=== PATIENT | female | born 1965 | race African-American/Black ===

== ENCOUNTER 2017-05-26 18:29 | Emergency (ER) | payer SELFPAY ==
[~2017-05-26] VITALS: Ht 162.6 cm; Wt 89.6 kg
[~2017-05-26 18:29] MED LIST: HYDR25TA6 PO
[2017-05-26 18:30] VITALS: BP 174/109
[2017-05-26] MEDS ORDERED: IBUPROFEN 200 MG TABLET ONE (19:08)
[2017-05-26] MEDS ORDERED: IBUPROFEN 200 MG TABLET PO ONE (19:30)
== END 2017-05-26 19:08 | disposition home or self-care (01) ==
LOC: ED 19:02
DX: J01.20 Acute ethmoidal sinusitis, unspecified (principal); J01.10 Acute frontal sinusitis, unspecified; I10 Essential (primary) hypertension; G43.909 Migraine, unspecified, not intractable, without status migrainosus
CPT/HCPCS: 99283

== ENCOUNTER 2017-08-31 09:27 | Emergency (ER) | payer SELFPAY ==
[~2017-08-31] VITALS: Ht 165.1 cm; Wt 86.4 kg
[2017-08-31] MEDS ORDERED: MECLIZINE CHEWABLE 25 MG TAB PO ONE (11:00)
[2017-08-31] MEDS ORDERED: SODIUM CHLORIDE FLUSH 10ML SYR IVF ONE (11:00)
[2017-08-31] MEDS ORDERED: SODIUM CHLORIDE 0.9% 1,000ML IVBOLUS ONE (11:00)
[2017-08-31 11:37] LABS: BASOPHILS # (AUTO) 0.01 x10^3/uL (0-0.1); BASOPHILS % (AUTO) 0 % (0-1); EOSINOPHILS # (AUTO) 0.08 x10^3/uL (0-0.4); EOSINOPHILS % (AUTO) 2 % (1-7); LYMPHOCYTES # (AUTO) 1.59 x10^3/uL (1-3.4); LYMPHOCYTES % (AUTO) 30 % (22-44); MD NO; MEAN CORPUSCULAR HEMOGLOBIN 21.5 pg (27.0-34.8); MEAN CORPUSCULAR HGB CONC 31.5 g/dL (32.4-35.8); MEAN CORPUSCULAR VOLUME 68.4 fL (80-100); MEAN PLATELET VOLUME 8.2 fL (7.4-10.4); MONOCYTES # (AUTO) 0.44 x10^3/uL (0.2-0.8); MONOCYTES % (AUTO) 8 % (2-9); NEUTROPHILS # (AUTO) 3.12 x10^3/uL (1.8-6.8); NEUTROPHILS % (AUTO) 60 % (42-75); PLATELET COUNT 388 x10^3/uL (130-400); RED BLOOD COUNT 4.91 x10^6/uL (3.82-5.3); RED CELL DISTRIBUTION WIDTH 20.1 % (9.6-15.2)
[2017-08-31] MEDS ORDERED: MECLIZINE CHEWABLE 25 MG TAB ONE (11:37)
[2017-08-31 11:48] LABS: MICROSCOPIC NOT IND
[2017-08-31 11:53] LABS: CULTURE INDICATED? NO
[2017-08-31 11:57] LABS: ALANINE AMINOTRANSFERASE 20 U/L (12-78); ALBUMIN 3.1 g/dL (3.4-5.0); ANION GAP 6 mmol/L (5-15); CALCIUM 8.2 mg/dL (8.5-10.1); CHLORIDE 108 mmol/L (98-107)
[2017-08-31 12:02] LABS: ALKALINE PHOSPHATASE 115 U/L (45-117); BILIRUBIN,TOTAL 0.5 mg/dL (0.2-1.0); CREATININE 0.85 mg/dL (0.55-1.02); TOTAL PROTEIN 7.1 g/dL (6.4-8.2); TROPONIN I < 0.015 ng/mL (0.000-0.045)
[2017-08-31 12:43] VITALS: BP 151/94
== END 2017-08-31 13:27 | disposition home or self-care (01) ==
LOC: ED 12:24
DX: R42 Dizziness and giddiness (principal); I10 Essential (primary) hypertension; G43.009 Migraine without aura, not intractable, without status migrainosus
CPT/HCPCS: 36415; 71046; 80053; 81003; 83880; 84484; 85025; 93005; 96360; 96361; 99285; J7030

== ENCOUNTER 2017-09-03 15:59 | Emergency (ER) | payer OTHER ==
[~2017-09-03] VITALS: Ht 162.6 cm; Wt 86.7 kg
[2017-09-03 17:02] LABS: ALBUMIN 3.5 g/dL (3.4-5.0); ANION GAP 8 mmol/L (5-15); CALCIUM 8.7 mg/dL (8.5-10.1); CHLORIDE 101 mmol/L (98-107); CREATININE 0.88 mg/dL (0.55-1.02)
[2017-09-03 17:06] LABS: TROPONIN I < 0.015 ng/mL (0.000-0.045)
[2017-09-03 17:07] LABS: MEAN CORPUSCULAR HEMOGLOBIN 21.6 pg (27.0-34.8); MEAN CORPUSCULAR HGB CONC 31.1 g/dL (32.4-35.8); MEAN CORPUSCULAR VOLUME 69.6 fL (80-100); MEAN PLATELET VOLUME 8.3 fL (7.4-10.4); PLATELET COUNT 458 x10^3/uL (130-400); RED BLOOD COUNT 5.22 x10^6/uL (3.82-5.3); RED CELL DISTRIBUTION WIDTH 20.5 % (9.6-15.2)
[2017-09-03 17:32] LABS: MD MORPH REVIEW ONLY
[2017-09-03 17:33] LABS: ANISOCYTOSIS 1+; HYPOCHROMIA 1+; MICROCYTOSIS 1+; POLYCHROMASIA 1+
[2017-09-03 17:34] LABS: <PLATELET ESTIMATE> INCREASED
[2017-09-03 17:35] LABS: LARGE PLATELETS 1+
[2017-09-03 17:38] LABS: BASOPHILS # (AUTO) 0.06 x10^3/uL (0-0.1); BASOPHILS % (AUTO) 1 % (0-1); EOSINOPHILS % (AUTO) 1 % (1-7); LYMPHOCYTES # (AUTO) 3.47 x10^3/uL (1-3.4); LYMPHOCYTES % (AUTO) 41 % (22-44); MONOCYTES # (AUTO) 0.46 x10^3/uL (0.2-0.8); MONOCYTES % (AUTO) 6 % (2-9); NEUTROPHILS # (AUTO) 4.28 x10^3/uL (1.8-6.8); NEUTROPHILS % (AUTO) 51 % (42-75)
[2017-09-03] MEDS ORDERED: POTASSIUM CHLORIDE 20 MEQ TAB.ER.PRT PO ONE (19:30)
[2017-09-03] MEDS ORDERED: POTASSIUM CHLORIDE 20 MEQ TAB.ER.PRT ONE (19:31)
[2017-09-03 21:24] VITALS: BP 141/88
== END 2017-09-03 21:35 | disposition home or self-care (01) ==
LOC: ED 19:49
DX: I10 Essential (primary) hypertension (principal); E87.6 Hypokalemia; G43.909 Migraine, unspecified, not intractable, without status migrainosus
CPT/HCPCS: 36415; 71045; 80048; 82040; 83880; 84484; 85025; 93005; 99285

== ENCOUNTER 2017-12-12 21:34 | Emergency (ER) | payer SELFPAY ==
[~2017-12-12] VITALS: Ht 162.6 cm; Wt 85.2 kg
[2017-12-12] MEDS ORDERED: HCTZ (21:39)
[2017-12-12] MEDS ORDERED: ENALAPRIL (21:39)
[2017-12-12 22:38] LABS: ALBUMIN 3.3 g/dL (3.4-5.0); ANION GAP 9 mmol/L (5-15); BASOPHILS # (AUTO) 0.04 x10^3/uL (0-0.1); BASOPHILS % (AUTO) 1 % (0-1); CALCIUM 8.8 mg/dL (8.5-10.1); CHLORIDE 107 mmol/L (98-107); CREATININE 1.15 mg/dL (0.55-1.02); EOSINOPHILS # (AUTO) 0.08 x10^3/uL (0-0.4); EOSINOPHILS % (AUTO) 1 % (1-7); LYMPHOCYTES # (AUTO) 2.18 x10^3/uL (1-3.4); LYMPHOCYTES % (AUTO) 33 % (22-44); MD NO; MEAN CORPUSCULAR HEMOGLOBIN 26.5 pg (27.0-34.8); MEAN CORPUSCULAR HGB CONC 32.6 g/dL (32.4-35.8); MEAN CORPUSCULAR VOLUME 81.4 fL (80-100); MEAN PLATELET VOLUME 8.6 fL (7.4-10.4); MONOCYTES # (AUTO) 0.53 x10^3/uL (0.2-0.8); MONOCYTES % (AUTO) 8 % (2-9); NEUTROPHILS # (AUTO) 3.76 x10^3/uL (1.8-6.8); NEUTROPHILS % (AUTO) 57 % (42-75); PLATELET COUNT 271 x10^3/uL (130-400); RED BLOOD COUNT 4.93 x10^6/uL (3.82-5.3); RED CELL DISTRIBUTION WIDTH 17.6 % (9.6-15.2)
[2017-12-12 23:29] VITALS: BP 126/71
== END 2017-12-12 23:31 | disposition home or self-care (01) ==
LOC: ED 22:11
DX: R20.2 Paresthesia of skin (principal); I10 Essential (primary) hypertension
CPT/HCPCS: 36415; 80048; 82040; 83735; 85025; 99284

== ENCOUNTER 2017-12-15 14:07 | Emergency (ER) | payer SELFPAY ==
[~2017-12-15] VITALS: Ht 162.6 cm; Wt 84.6 kg
[~2017-12-15 14:07] MED LIST changes: +ENALAPRIL; +HCTZ
[2017-12-15 14:10] VITALS: BP 152/111
[2017-12-15] MEDS ORDERED: POTA25TA4 PO (15:29)
[2017-12-15] MEDS ORDERED: ENAL2.5T PO (15:29)
== END 2017-12-15 17:14 | disposition home or self-care (01) ==
LOC: ED 16:50
DX: S00.12XA Contusion of left eyelid and periocular area, initial encounter (principal); G43.909 Migraine, unspecified, not intractable, without status migrainosus; I10 Essential (primary) hypertension; W22.8XXA Striking against or struck by other objects, initial encounter; Y93.89 Activity, other specified; Y92.89 Other specified places as the place of occurrence of the external cause; Y99.8 Other external cause status
CPT/HCPCS: 70486; 99284

== ENCOUNTER 2017-12-18 22:02 | Emergency (ER) | payer SELFPAY ==
[~2017-12-18] VITALS: Ht 162.6 cm; Wt 86.8 kg
[~2017-12-18 22:02] MED LIST changes: +ENAL2.5T PO; +POTA25TA4 PO
[2017-12-18 22:54] LABS: ALBUMIN 3.2 g/dL (3.4-5.0); ANION GAP 11 mmol/L (5-15); CHLORIDE 106 mmol/L (98-107); CREATININE 0.87 mg/dL (0.55-1.02)
[2017-12-18 22:57] LABS: TROPONIN I < 0.015 ng/mL (0.000-0.045)
[2017-12-18 23:04] LABS: MEAN CORPUSCULAR HEMOGLOBIN 27.3 pg (27.0-34.8); MEAN CORPUSCULAR VOLUME 82.7 fL (80-100); MEAN PLATELET VOLUME 8.5 fL (7.4-10.4); PLATELET COUNT 264 x10^3/uL (130-400); RED BLOOD COUNT 4.82 x10^6/uL (3.82-5.3); RED CELL DISTRIBUTION WIDTH 16.9 % (9.6-15.2)
[2017-12-18 23:21] LABS: BASOPHILS # (AUTO) 0.03 x10^3/uL (0-0.1); BASOPHILS % (AUTO) 0 % (0-1); EOSINOPHILS # (AUTO) 0.11 x10^3/uL (0-0.4); EOSINOPHILS % (AUTO) 2 % (1-7); LYMPHOCYTES # (AUTO) 2.11 x10^3/uL (1-3.4); LYMPHOCYTES % (AUTO) 34 % (22-44); MD SCAN; MONOCYTES # (AUTO) 0.45 x10^3/uL (0.2-0.8); MONOCYTES % (AUTO) 7 % (2-9); NEUTROPHILS # (AUTO) 3.47 x10^3/uL (1.8-6.8); NEUTROPHILS % (AUTO) 56 % (42-75)
[2017-12-19] MEDS ORDERED: POTASSIUM CHLORIDE 20 MEQ TAB.ER.PRT PO ONE
[2017-12-19] MEDS ORDERED: POTASSIUM CHLORIDE 20 MEQ TAB.ER.PRT ONE (00:10)
[2017-12-19 00:24] VITALS: BP 119/71
== END 2017-12-19 00:27 | disposition home or self-care (01) ==
LOC: ED 23:22
DX: R55 Syncope and collapse (principal); R53.1 Weakness; I10 Essential (primary) hypertension
CPT/HCPCS: 36415; 80048; 82040; 84484; 85025; 93005; 99285

== ENCOUNTER 2018-01-19 14:22 | Emergency (ER) | payer SELFPAY ==
[~2018-01-19] VITALS: Ht 162.6 cm; Wt 86.0 kg
[2018-01-19] MEDS ORDERED: KETOROLAC 30 MG/1 ML IM ONE (14:30)
[2018-01-19] MEDS ORDERED: KETOROLAC 30 MG/1 ML ONE (14:45)
[2018-01-19 14:56] LABS: BASOPHILS # (AUTO) 0.04 x10^3/uL (0-0.1); BASOPHILS % (AUTO) 1 % (0-1); EOSINOPHILS # (AUTO) 0.09 x10^3/uL (0-0.4); EOSINOPHILS % (AUTO) 2 % (1-7); LYMPHOCYTES # (AUTO) 2.45 x10^3/uL (1-3.4); LYMPHOCYTES % (AUTO) 39 % (22-44); MD NO; MEAN CORPUSCULAR HEMOGLOBIN 28.9 pg (27.0-34.8); MEAN CORPUSCULAR HGB CONC 33.4 g/dL (32.4-35.8); MEAN CORPUSCULAR VOLUME 86.6 fL (80-100); MEAN PLATELET VOLUME 8.3 fL (7.4-10.4); MONOCYTES # (AUTO) 0.47 x10^3/uL (0.2-0.8); MONOCYTES % (AUTO) 8 % (2-9); NEUTROPHILS # (AUTO) 3.21 x10^3/uL (1.8-6.8); NEUTROPHILS % (AUTO) 51 % (42-75); PLATELET COUNT 295 x10^3/uL (130-400); RED BLOOD COUNT 5.13 x10^6/uL (3.82-5.3); RED CELL DISTRIBUTION WIDTH 16.6 % (9.6-15.2)
[2018-01-19] MEDS ORDERED: OMEP40CA6 PO (15:04)
[2018-01-19 15:09] LABS: ALANINE AMINOTRANSFERASE 27 U/L (12-78); ALBUMIN 3.4 g/dL (3.4-5.0); ANION GAP 10 mmol/L (5-15); CALCIUM 9.1 mg/dL (8.5-10.1); CHLORIDE 105 mmol/L (98-107)
[2018-01-19 15:14] LABS: ALKALINE PHOSPHATASE 109 U/L (45-117); BILIRUBIN,TOTAL 0.5 mg/dL (0.2-1.0); TOTAL PROTEIN 7.8 g/dL (6.4-8.2); TROPONIN I < 0.015 ng/mL (0.000-0.045)
[2018-01-19] MEDS ORDERED: SODIUM CHLORIDE FLUSH 10ML SYR IVF ONE (15:30)
[2018-01-19] MEDS ORDERED: OMNIPAQUE 350 MG/ML, 100ML BOTTLE ONE (16:06)
[2018-01-19 16:22] VITALS: BP 123/76
== END 2018-01-19 17:03 | disposition home or self-care (01) ==
LOC: ED 15:03
DX: R06.00 Dyspnea, unspecified (principal); R07.89 Other chest pain; R09.1 Pleurisy; I10 Essential (primary) hypertension
CPT/HCPCS: 36415; 71046; 71275; 80053; 83880; 84484; 85025; 85379; 93005; 96372; 99285; J1885; Q9967

== ENCOUNTER 2018-03-04 08:21 | Emergency (ER) | payer OTHER ==
[~2018-03-04] VITALS: Ht 162.6 cm; Wt 85.9 kg
[~2018-03-04 08:21] MED LIST changes: +OMEP40CA6 PO
[2018-03-04] MEDS ORDERED: LORazepam 1MG TABLET PO ONE (09:00)
[2018-03-04] MEDS ORDERED: ONDANSETRON ODT 4 MG PO ONE (09:00)
[2018-03-04] MEDS ORDERED: LORazepam 1MG TABLET ONE (09:03)
[2018-03-04] MEDS ORDERED: ONDANSETRON ODT 4 MG ONE (09:03)
[2018-03-04 09:23] LABS: ALANINE AMINOTRANSFERASE 26 U/L (12-78); ALBUMIN 3.6 g/dL (3.4-5.0); ANION GAP 6 mmol/L (5-15); CALCIUM 8.2 mg/dL (8.5-10.1); CHLORIDE 109 mmol/L (98-107); CREATININE 0.88 mg/dL (0.55-1.02)
[2018-03-04 09:28] LABS: ALKALINE PHOSPHATASE 104 U/L (45-117); BILIRUBIN,TOTAL 0.7 mg/dL (0.2-1.0); TOTAL PROTEIN 7.9 g/dL (6.4-8.2); TROPONIN I < 0.015 ng/mL (0.000-0.045)
[2018-03-04 09:41] LABS: BASOPHILS # (AUTO) 0.03 x10^3/uL (0-0.1); BASOPHILS % (AUTO) 1 % (0-1); EOSINOPHILS # (AUTO) 0.05 x10^3/uL (0-0.4); EOSINOPHILS % (AUTO) 1 % (1-7); LYMPHOCYTES # (AUTO) 1.64 x10^3/uL (1-3.4); LYMPHOCYTES % (AUTO) 30 % (22-44); MD NO; MEAN CORPUSCULAR HEMOGLOBIN 29.9 pg (27.0-34.8); MEAN CORPUSCULAR HGB CONC 33.7 g/dL (32.4-35.8); MEAN CORPUSCULAR VOLUME 88.8 fL (80-100); MEAN PLATELET VOLUME 8.5 fL (7.4-10.4); MONOCYTES % (AUTO) 7 % (2-9); NEUTROPHILS % (AUTO) 61 % (42-75); PLATELET COUNT 293 x10^3/uL (130-400); RED BLOOD COUNT 5.03 x10^6/uL (3.82-5.3); RED CELL DISTRIBUTION WIDTH 14.4 % (9.6-15.2)
[2018-03-04 09:55] VITALS: BP 129/82
== END 2018-03-04 10:17 | disposition home or self-care (01) ==
LOC: ED 09:34
DX: F43.0 Acute stress reaction (principal); F41.9 Anxiety disorder, unspecified; K21.9 Gastro-esophageal reflux disease without esophagitis; G43.909 Migraine, unspecified, not intractable, without status migrainosus; I10 Essential (primary) hypertension; Z79.899 Other long term (current) drug therapy
CPT/HCPCS: 36415; 80053; 84484; 85025; 93005; 99284; Q0162

== ENCOUNTER 2018-06-08 06:52 | Day surgery (SDC) | payer OTHER ==
[~2018-06-08] VITALS: Ht 162.6 cm; Wt 88.0 kg
[2018-06-08] MEDS ORDERED: AMLO10TA8 PO (07:15)
[2018-06-08] MEDS ORDERED: ONDANSETRON 2MG/ML, 2ML ONE ×2 (07:17→12:18)
[2018-06-08] MEDS ORDERED: FAMOTIDINE 20 MG/2 ML ONE (07:18)
[2018-06-08] MEDS ORDERED: MORPHINE SULFATE 4 MG/ML, 1ML ONE ×2 (07:18→08:54)
[2018-06-08] MEDS: MORPHINE SULFATE 4 MG/ML, 1ML IVPush PRN ×2 (07:27→08:55)
[2018-06-08 07:30] LABS: BASOPHILS # (AUTO) 0.03 x10^3/uL (0-0.1); BASOPHILS % (AUTO) 0 % (0-1); EOSINOPHILS % (AUTO) 2 % (1-7); LYMPHOCYTES # (AUTO) 1.47 x10^3/uL (1-3.4); LYMPHOCYTES % (AUTO) 24 % (22-44); MD NO; MEAN CORPUSCULAR HEMOGLOBIN 29.2 pg (27.0-34.8); MEAN CORPUSCULAR HGB CONC 33.2 g/dL (32.4-35.8); MEAN CORPUSCULAR VOLUME 87.9 fL (80-100); MEAN PLATELET VOLUME 8.1 fL (7.4-10.4); MONOCYTES # (AUTO) 0.44 x10^3/uL (0.2-0.8); MONOCYTES % (AUTO) 7 % (2-9); NEUTROPHILS # (AUTO) 4.23 x10^3/uL (1.8-6.8); NEUTROPHILS % (AUTO) 67 % (42-75); PLATELET COUNT 267 x10^3/uL (130-400); RED CELL DISTRIBUTION WIDTH 13.4 % (9.6-15.2)
[2018-06-08] MEDS ORDERED: FAMOTIDINE 20 MG/2 ML IVP ONE (07:30)
[2018-06-08] MEDS ORDERED: SODIUM CHLORIDE FLUSH 10ML SYR IVF ONE (07:30)
[2018-06-08] MEDS ORDERED: ONDANSETRON 2MG/ML, 2ML IVPush ONE (07:30)
[2018-06-08 07:43] LABS: ALANINE AMINOTRANSFERASE 24 U/L (12-78); ALBUMIN 3.5 g/dL (3.4-5.0); ANION GAP 8 mmol/L (5-15); CALCIUM 8.7 mg/dL (8.5-10.1); CHLORIDE 112 mmol/L (98-107); CREATININE 0.79 mg/dL (0.55-1.02)
[2018-06-08 07:58] LABS: ALKALINE PHOSPHATASE 99 U/L (45-117); BILIRUBIN,TOTAL 0.5 mg/dL (0.2-1.0); TOTAL PROTEIN 7.1 g/dL (6.4-8.2)
[2018-06-08] MEDS ORDERED: OMNIPAQUE 350 MG/ML, 100ML BOTTLE ONE (08:20)
--- NOTE | 2018-06-08 08:56 | NUR ---
PT PAIN HAD IMPROVED TO 4/10 BUT IS NOW BACK UP TO A 8/10. PT MED NOTED. VSS
--- NOTE | 2018-06-08 09:10 | NUR ---
PT OOB AMBULATED TO BATHROOM UPRIGHT STEADY GAIT.
--- NOTE | 2018-06-08 10:31 | NUR ---
[facility] RPT TO PRE-OP RN. PTS NEEDS TO BE CALLED POST-OP RANDOLPH DIANE [phone]
[2018-06-08] MEDS ORDERED: ASPIRIN PO (11:07)
[2018-06-08] MEDS ORDERED: BUPIVACAINE/PF-EPI 0.5% 1:200K ONE (11:10)
[2018-06-08 11:11] VITALS: BP 155/107
[2018-06-08] MEDS ORDERED: FENTANYL PF 250 MCG/5ML ONE (11:24)
[2018-06-08] MEDS ORDERED: MIDAZOLAM 1 MG/ML, 2ML ONE (11:24)
[2018-06-08] MEDS ORDERED: DEXAMETHASONE 4 MG/ML, 1ML ONE (11:52)
[2018-06-08] MEDS ORDERED: ROCURONIUM 10MG/ML,5ML ONE (11:52)
[2018-06-08] MEDS ORDERED: PROPOFOL 10 MG/ML, 20ML ONE (11:52)
[2018-06-08] MEDS ORDERED: SUCCINYLCHOLINE 20 MG/ML, 10ML ONE (11:52)
[2018-06-08] MEDS ORDERED: ONDANSETRON 2MG/ML, 2ML IV PRN (12:30)
[2018-06-08] MEDS ORDERED: ALBUTEROL SULFATE 2.5 MG/3 ML NPPB PRN (12:30)
[2018-06-08] MEDS ORDERED: MEPERIDINE/PF 25MG/0.5ML IVPush PRN (12:30)
[2018-06-08] MEDS ORDERED: PROMETHAZINE 12.5 MG SUPP PR PRN (12:30)
[2018-06-08] MEDS ORDERED: hydrALAzine 20 MG/ML, 1ML IV PRN (12:30)
[2018-06-08] MEDS ORDERED: OXYcodone 5 MG/5 ML ORAL.SOL UDC PO PRN (12:30)
[2018-06-08] MEDS ORDERED: EPHEDRINE 50 MG/ML, 1ML IVPush PRN (12:30)
[2018-06-08] MEDS ORDERED: MORPHINE SULFATE 4 MG/ML, 1ML IVPush PRN (12:30)
[2018-06-08] MEDS ORDERED: HYDROmorphone 2 MG/ML, 1ML IVPush PRN (12:30)
[2018-06-08] MEDS ORDERED: DIAZEPAM 5 MG/ML, 2ML IVPush PRN (12:30)
[2018-06-08] MEDS ORDERED: LABETALOL 5MG/ML, 20ML IV PRN (12:30)
[2018-06-08] MEDS ORDERED: MIDAZOLAM 1 MG/ML, 2ML IV PRN (12:30)
[2018-06-08] MEDS ORDERED: ONDANSETRON ODT 8 MG PO PRN (12:30)
[2018-06-08] MEDS ORDERED: ACETAMINOPHEN 325 MG TABLET PO PRN (12:30)
[2018-06-08] MEDS ORDERED: HALOPERIDOL 5 MG/ML IV PRN (12:30)
[2018-06-08] MEDS ORDERED: FENTANYL PF 100 MCG/2ML IV PRN (12:30)
[2018-06-08] MEDS ORDERED: PROMETHAZINE 25 MG/ML, 1ML IV PRN (12:30)
[2018-06-08] MEDS ORDERED: FENTANYL PF 100 MCG/2ML ONE (12:55)
[2018-06-08] MEDS ORDERED: OXYcodone 5 MG/5 ML ORAL.SOL UDC ONE (12:55)
[2018-06-08] MEDS ORDERED: PHENYLEPHRINE 10 MG/ML ONE (16:14)
== END 2018-06-08 15:32 | disposition home or self-care (01) ==
LOC: ED 09:17 → ORIP 10:14 → UNDOADMOB 10:14 → OR 12:30
PROVIDERS: ATTEND Emergency Medicine
DX: M79.89 Other specified soft tissue disorders (principal); I10 Essential (primary) hypertension; K21.9 Gastro-esophageal reflux disease without esophagitis; E87.6 Hypokalemia; Z88.8 Allergy status to other drugs, medicaments and biological substances; Z98.890 Other specified postprocedural states
CPT/HCPCS: 22900; 36415; 74177; 80053; 81025; 83690; 84703; 85025; 87070; 87075; 87077; 87205; 88305; 93005; J0330; J1100; J2250; J2370; J2405; J2704; J3010; J3490; Q9967

== ENCOUNTER 2018-10-14 21:41 | Emergency (ER) | payer OTHER ==
[~2018-10-14] VITALS: Ht 162.6 cm; Wt 87.4 kg
[2018-10-15 00:04] VITALS: BP 141/73
== END 2018-10-15 00:06 | disposition home or self-care (01) ==
LOC: ED 23:59
DX: K21.9 Gastro-esophageal reflux disease without esophagitis (principal); K29.00 Acute gastritis without bleeding
CPT/HCPCS: 36415; 71045; 80053; 83690; 84484; 85025; 93005; 96374; 96375; 99284; J2405; J3490

== ENCOUNTER 2019-04-13 19:36 | Emergency (ER) | payer OTHER ==
[~2019-04-13] VITALS: Ht 162.6 cm; Wt 88.6 kg
[~2019-04-13 19:36] MED LIST changes: +AMLO10TA8 PO; +ASPIRIN PO; +METO25TA35 PO; +OMEP40CA42 PO; -OMEP40CA6 PO
--- NOTE | 2019-04-13 20:00 | NUR ---
THIS IS A 53 YO F W/ C/O URINARY FREQ SINCE FRIDAY AND INTERMITTENT LLQ PAIN SINCE FRIDAY. DENIES N/V/D. DENIES PAIN W/ URINATION. REPORTS NEG UA FROM [facility]. RESP EVEN AND UNLABORED. VS STABLE. CALL LIGHT IN REACH. DENIES FURTHER NEEDS AT THIS TIME. AWAITING ORDERS.
--- NOTE | 2019-04-13 20:09 | NUR ---
UA COLLECTED AND SENT TO LAB
[2019-04-13 20:23] LABS: MICROSCOPIC NOT IND
[2019-04-13 20:29] LABS: ALBUMIN 3.3 g/dL (3.4-5.0); ANION GAP 7 mmol/L (5-15); CALCIUM 8.6 mg/dL (8.5-10.1); CHLORIDE 110 mmol/L (98-107); CREATININE 0.73 mg/dL (0.55-1.02)
[2019-04-13 20:30] LABS: CULTURE INDICATED? NO
[2019-04-13 20:37] LABS: BASOPHILS # (AUTO) 0.03 x10^3/uL (0-0.1); BASOPHILS % (AUTO) 1 % (0-1); EOSINOPHILS # (AUTO) 0.17 x10^3/uL (0-0.4); EOSINOPHILS % (AUTO) 3 % (1-7); LYMPHOCYTES # (AUTO) 2.14 x10^3/uL (1-3.4); LYMPHOCYTES % (AUTO) 32 % (22-44); MD NO; MEAN CORPUSCULAR HEMOGLOBIN 29.2 pg (27.0-34.8); MEAN CORPUSCULAR HGB CONC 33.4 g/dL (32.4-35.8); MEAN CORPUSCULAR VOLUME 87.4 fL (80-100); MEAN PLATELET VOLUME 8.6 fL (7.4-10.4); MONOCYTES # (AUTO) 0.41 x10^3/uL (0.2-0.8); MONOCYTES % (AUTO) 6 % (2-9); NEUTROPHILS # (AUTO) 3.98 x10^3/uL (1.8-6.8); NEUTROPHILS % (AUTO) 59 % (42-75); PLATELET COUNT 278 x10^3/uL (130-400); RED BLOOD COUNT 4.55 x10^6/uL (3.82-5.3); RED CELL DISTRIBUTION WIDTH 13.5 % (9.6-15.2)
--- NOTE | 2019-04-13 20:44 | NUR ---
ALL TESTS RESULTED. PT IS UP FOR RECHECK AT THIS TIME.
[2019-04-13 20:46] VITALS: BP 128/88
--- NOTE | 2019-04-13 21:34 | NUR ---
PT TO RAD.
--- NOTE | 2019-04-13 22:21 | NUR ---
Patient given discharge instructions and they have confirmed that they understand the instructions. Patient ambulatory with steady gait.
== END 2019-04-13 22:23 | disposition home or self-care (01) ==
LOC: ED 22:00
DX: D25.9 Leiomyoma of uterus, unspecified (principal); R10.32 Left lower quadrant pain; I10 Essential (primary) hypertension; G43.909 Migraine, unspecified, not intractable, without status migrainosus
CPT/HCPCS: 36415; 74176; 76856; 80048; 81003; 82040; 85025; 99284

== ENCOUNTER 2019-07-14 22:32 | Emergency (ER) | payer OTHER ==
[~2019-07-14] VITALS: Ht 154.9 cm; Wt 84.3 kg
[2019-07-14 23:16] LABS: MEAN CORPUSCULAR HEMOGLOBIN 28.6 pg (27.0-34.8); MEAN CORPUSCULAR HGB CONC 32.8 g/dL (32.4-35.8); MEAN CORPUSCULAR VOLUME 87.2 fL (80-100); MEAN PLATELET VOLUME 8.2 fL (7.4-10.4); PLATELET COUNT 259 x10^3/uL (130-400); RED BLOOD COUNT 4.64 x10^6/uL (3.82-5.3); RED CELL DISTRIBUTION WIDTH 14.4 % (9.6-15.2)
[2019-07-14 23:18] LABS: ALBUMIN 3.2 g/dL (3.4-5.0); ANION GAP 7 mmol/L (5-15); CALCIUM 9.1 mg/dL (8.5-10.1); CHLORIDE 109 mmol/L (98-107); CREATININE 0.77 mg/dL (0.55-1.02)
[2019-07-14 23:22] LABS: TROPONIN I < 0.015 ng/mL (0.000-0.045)
[2019-07-14 23:29] VITALS: BP 149/98
[2019-07-14 23:42] LABS: MD YES
[2019-07-14 23:51] LABS: EOS#(MANUAL) 0.13 x10^3/uL (0.0-0.4); EOS% (MANUAL) 2 % (1-7); LYMPHS% (MANUAL) 43 % (22-44); MONOS% (MANUAL) 3 % (2-9); SEG#(MANUAL) 3.38 x10^3/uL (1.8-6.8); SEGS% (MANUAL) 52 % (42-75)
[2019-07-14 23:52] LABS: <PLATELET ESTIMATE> ADEQUATE; <PLT MORPHOLOGY> NORMAL PLT MORPH; <RBC MORPHOLOGY> NORMAL
== END 2019-07-15 00:47 | disposition home or self-care (01) ==
LOC: ED 23:42
DX: M25.512 Pain in left shoulder (principal); I11.9 Hypertensive heart disease without heart failure
CPT/HCPCS: 36415; 71045; 80048; 82040; 84484; 85025; 93005; 99285

== ENCOUNTER 2019-09-26 12:10 | Emergency (ER) | payer OTHER ==
[~2019-09-26] VITALS: Ht 162.6 cm; Wt 85.5 kg
[2019-09-26 12:16] VITALS: BP 142/93
--- NOTE | 2019-09-26 12:33 | NUR ---
MD IS AT THE BEDSIDE FOR ASSESSMENT
== END 2019-09-26 13:21 ==
LOC: ED 13:15
DX: M54.32 Sciatica, left side (principal); R20.8 Other disturbances of skin sensation; I10 Essential (primary) hypertension; K21.9 Gastro-esophageal reflux disease without esophagitis
CPT/HCPCS: 99282

== ENCOUNTER 2020-02-29 23:12 | Emergency (ER) | payer SELFPAY ==
[~2020-02-29] VITALS: Ht 162.6 cm; Wt 90.0 kg
[~2020-02-29 23:12] MED LIST changes: +AMLO-211 PO; -AMLO10TA8 PO; -ENAL2.5T PO; +ENAL2.5T8 PO
--- NOTE | 2020-02-29 23:29 | NUR ---
TASK RN: PT AMBULATES BACK TO ROOM WITH SPOUSE. PT BIB SPOUSE VIA POV DUE TO LEFT ARM PAIN. PT DENIES ANY CP, SOB, OR TRAUMA TO ARM. TYLER RUDD AT BEDSIDE. PT RESTING IN [facility], MONITORING IN PLACE, AT BS, [place] AT THIS TIME.
[2020-02-29] MEDS ORDERED: HYDROcodone/APAP 5/325 TABLET ONE (23:39)
[2020-03-01] MEDS ORDERED: HYDROcodone/APAP 5/325 TABLET PO ONE
[2020-03-01 00:04] LABS: BASOPHILS % (AUTO) 1 % (0-1); EOSINOPHILS % (AUTO) 4 % (1-7); LYMPHOCYTES % (AUTO) 37 % (22-44); MEAN CORPUSCULAR HEMOGLOBIN 28.9 pg (27.0-34.8); MEAN CORPUSCULAR HGB CONC 33.6 g/dL (32.4-35.8); MEAN PLATELET VOLUME 8.1 fL (7.4-10.4); MONOCYTES % (AUTO) 8 % (2-9); NEUTROPHILS % (AUTO) 51 % (42-75); PLATELET COUNT 273 x10^3/uL (130-400); RED BLOOD COUNT 4.72 x10^6/uL (3.82-5.3); RED CELL DISTRIBUTION WIDTH 14.1 % (9.6-15.2)
[2020-03-01 00:06] LABS: MD NO
[2020-03-01 00:12] LABS: ALANINE AMINOTRANSFERASE 39 U/L (12-78); ALBUMIN 3.4 g/dL (3.4-5.0); ANION GAP 4 mmol/L (5-15); CALCIUM 8.7 mg/dL (8.5-10.1); CHLORIDE 111 mmol/L (98-107); CREATININE 0.81 mg/dL (0.55-1.02)
[2020-03-01 00:16] LABS: ALKALINE PHOSPHATASE 153 U/L (45-117); BILIRUBIN,TOTAL 0.2 mg/dL (0.2-1.0); TOTAL PROTEIN 7.6 g/dL (6.4-8.2); TROPONIN I < 0.015 ng/mL (0.000-0.045)
[2020-03-01] MEDS ORDERED: KETOROLAC 30 MG/1 ML IM ONE (01:30)
[2020-03-01] MEDS ORDERED: KETOROLAC 30 MG/1 ML ONE (01:45)
[2020-03-01 01:51] VITALS: BP 133/78
--- NOTE | 2020-03-01 01:53 | NUR ---
Patient/Caregiver given discharge instructions and they have confirmed that they understand the instructions. Patient ambulatory with steady gait.
== END 2020-03-01 01:54 | disposition home or self-care (01) ==
LOC: ED 03-01 00:43
DX: S46.012A Strain of muscle(s) and tendon(s) of the rotator cuff of left shoulder, initial encounter (principal); I10 Essential (primary) hypertension; K21.9 Gastro-esophageal reflux disease without esophagitis; G43.909 Migraine, unspecified, not intractable, without status migrainosus; X58.XXXA Exposure to other specified factors, initial encounter; Y93.89 Activity, other specified; Y92.89 Other specified places as the place of occurrence of the external cause; Y99.8 Other external cause status
CPT/HCPCS: 36415; 71045; 73030; 80053; 84484; 85025; 93005; 93971; 96372; 99285; J1885

== ENCOUNTER 2020-12-02 23:38 | Emergency (ER) | payer SELFPAY ==
[~2020-12-02] VITALS: Ht 162.6 cm; Wt 90.5 kg
[~2020-12-02 23:38] MED LIST changes: -OMEP40CA42 PO; +OMEP40CA8 PO
[2020-12-03] MEDS ORDERED: SODIUM CHLORIDE FLUSH 10ML SYR IVF ONE
[2020-12-03 00:06] LABS: MICROSCOPIC NOT IND
[2020-12-03 00:10] LABS: BASOPHILS % (AUTO) 1 % (0-1); EOSINOPHILS % (AUTO) 2 % (1-7); LYMPHOCYTES % (AUTO) 35 % (22-44); MEAN CORPUSCULAR HEMOGLOBIN 29.3 pg (27.0-34.8); MEAN CORPUSCULAR HGB CONC 34.1 g/dL (32.4-35.8); MEAN PLATELET VOLUME 8.3 fL (7.4-10.4); MONOCYTES % (AUTO) 8 % (2-9); NEUTROPHILS % (AUTO) 55 % (42-75); PLATELET COUNT 250 x10^3/uL (130-400); RED BLOOD COUNT 4.76 x10^6/uL (3.82-5.3); RED CELL DISTRIBUTION WIDTH 13.9 % (9.6-15.2)
[2020-12-03 00:21] LABS: ALANINE AMINOTRANSFERASE 30 U/L (12-78); ALBUMIN 2.9 g/dL (3.4-5.0); ANION GAP 4 mmol/L (5-15); CALCIUM 8.7 mg/dL (8.5-10.1); CHLORIDE 110 mmol/L (98-107)
[2020-12-03 00:26] LABS: ALKALINE PHOSPHATASE 146 U/L (45-117); BILIRUBIN,TOTAL 0.5 mg/dL (0.2-1.0); CREATININE 0.81 mg/dL (0.55-1.02); TOTAL PROTEIN 7.6 g/dL (6.4-8.2); TROPONIN I < 0.015 ng/mL (0.000-0.045)
--- NOTE | 2020-12-03 02:17 | NUR ---
PT TO CT
[2020-12-03 04:54] VITALS: BP 148/77
[2020-12-03] MEDS ORDERED: OMNIPAQUE 350 MG/ML, 100ML BOTTLE ONE (06:19)
== END 2020-12-03 04:56 | disposition home or self-care (01) ==
LOC: ED 23:40
DX: K29.00 Acute gastritis without bleeding (principal); D25.1 Intramural leiomyoma of uterus; R10.12 Left upper quadrant pain; R10.32 Left lower quadrant pain; R07.89 Other chest pain; I10 Essential (primary) hypertension
CPT/HCPCS: 36415; 71045; 74177; 80053; 81003; 83690; 84484; 85025; 93005; 99285; Q9967